=== PATIENT | female | born 1985 | race African-American/Black ===

== ENCOUNTER → 2019-11-23 | Outpatient (CLI) | payer BC | LOC: ZCOL.LAB 16:29 | DX: Z20.828 Contact with and (suspected) exposure to other viral communicable diseases (principal) ==

== ENCOUNTER → 2021-08-18 | Outpatient (CLI) | payer BC | LOC: COL.RAD 13:44 | DX: R22.2 Localized swelling, mass and lump, trunk (principal); N64.4 Mastodynia ==

== ENCOUNTER 2023-03-07 15:34 | Emergency (ER) | payer BC ==
[~2023-03-07] VITALS: Ht 162.6 cm; Wt 62.7 kg
[2023-03-07] MEDS ORDERED: MEDROL 4MG DOSPA4 MG PO (16:11)
[2023-03-07 16:27] VITALS: BP 134/89; PULSE 82; TEMP 97.9
== END 2023-03-07 16:30 | disposition home or self-care (01) ==
LOC: COL.ER 15:34
DX: L24.9 Irritant contact dermatitis, unspecified cause (principal)

== ENCOUNTER 2023-11-14 21:45 | Emergency (ER) | payer BC ==
[~2023-11-14] VITALS: Ht 162.6 cm; Wt 56.8 kg
[~2023-11-14 21:45] MED LIST: MEDROL 4MG DOSPA4 MG PO
[2023-11-14 21:51] VITALS: TEMP 98.1
[2023-11-14] MEDS ORDERED: Ibuprofen 400 MG TAB PO ONE (22:00)
[2023-11-14 23:01] VITALS: BP 136/82; PULSE 83
== END 2023-11-14 23:01 | disposition home or self-care (01) ==
LOC: COL.ER 21:45
DX: M25.572 Pain in left ankle and joints of left foot (principal); M79.89 Other specified soft tissue disorders; Z98.890 Other specified postprocedural states